=== PATIENT | male | born 1965 | race Caucasian/White ===

== ENCOUNTER 2017-01-11 18:29 | Emergency (ER) | payer BC ==
[2017-01-11] MEDS ORDERED: Albuterol/Ipratropium 3.0-0.5 MG/3 ML Neb Soln NEB ONE (18:42)
--- NOTE | 2017-01-11 18:54 | EDM.PDOC ---
ED HPI GENERAL MEDICAL PROBLEM - General Chief Complaint: Lower Extremity Injury/Pain Stated Complaint: DRAIN LT LEG/FALL Time Seen by Provider: 01/11/17 18:35 Source of Information: Reports: Patient History Limitations: Reports: No Limitations - History of Present Illness INITIAL COMMENTS - FREE TEXT/NARRATIVE: History of present illness: [51-year-old male comes in complaining of fluid on the back of his left eye. Patient indicates he was in a traumatic accident and now he feels he has some blood trapped unassigned he would like to have it drained.] Review of systems: As per history of present illness and below otherwise all systems reviewed and negative. Past medical history: As per history of present illness and as reviewed below otherwise noncontributory. Surgical history: As per history of present illness and as reviewed below otherwise noncontributory. Social history: No reported history of drug or alcohol abuse. Family history: As per history of present illness and as reviewed below otherwise noncontributory. Physical exam: HEENT: Atraumatic, normocephalic, pupils reactive, negative for conjunctival pallor or scleral icterus, mucous membranes moist, throat clear, neck supple, nontender, trachea midline. Lungs: Clear to auscultation, breath sounds equal bilaterally, chest nontender. Heart: S1S2, regular, negative for clicks, rubs, or JVD. Abdomen: Soft, nondistended, nontender. Negative for masses or hepatosplenomegaly. Negative for costovertebral tenderness. Pelvis: Stable nontender. Genitourinary: Deferred. Rectal: Deferred. Extremities: Left foot ankle swollen and ecchymotic with a fluctuant area to the back of the left thigh, negative for cords or calf pain. Neurovascular unremarkable. Neuro: Awake, alert, oriented. Cranial nerves II through XII unremarkable. Cerebellum unremarkable. Motor and sensory unremarkable throughout. Exam nonfocal. X-rays negative for fracture dialogue about risks of doing any nature of drainage of the hematoma patient verbalized understanding. Patient provided Pierre wrap and a brief prescription of meloxicam instead of ibuprofen for discomfort.. Discussed elevation icing of the calf and heating and massaging of the thigh. Diagnostics: [X-ray left leg with foot] Therapeutics: [] Impression: [Leg pain, hematoma] Plan: [Pierre wrap meloxicam] Definitive disposition and diagnosis as appropriate pending reevaluation and review of above. left post. thigh and left leg Pain Score (Numeric/FACES): 6 - Related Data Allergies Allergy/AdvReac Type Severity Reaction Status Date / Time No Known Allergies Allergy Verified 01/11/17 18:47 Home Meds: Home Meds Meloxicam 7.5 mg PO BID #30 tablet 01/11/17 [Rx] Review of Systems - Review of Systems Review Of Systems: See Below (History of present illness) ED EXAM, GENERAL - Physical Exam Exam: See Below (History of present illness) Course - Vital Signs Last Recorded V/S: Last Vital Signs Temp 36.6 C 01/11/17 18:45 Pulse 84 01/11/17 18:45 Resp 16 01/11/17 18:45 BP 132/71 01/11/17 18:45 Pulse Ox 97 01/11/17 18:45 - Orders/Labs/Meds Orders: Active Orders 24 hr Category Date Time Status RT Aerosol Therapy [RC] ASDIRECTED Care 01/11/17 18:43 Inactive Femur Min 2V Lt [CR] Stat Exams 01/11/17 18:45 Taken Foot 2V Lt [CR] Stat Exams 01/11/17 18:45 Taken Meds: Medications Discontinued Medications Generic Name Dose Route Start Last Admin Trade Name Freq PRN Reason Stop Dose Admin Albuterol/Ipratropium 3 ml 01/11/17 18:42 01/11/17 19:06 Duoneb 3.0-0.5 Mg/3 Ml NEB 01/11/17 18:43 Not Given ONETIME ONE Departure - Departure Time of Disposition: 20:03 Disposition: Home, Self-Care 01 Condition: Good Clinical Impression: Leg pain - Discharge Information Forms: ED Department Discharge Additional Instructions: The following information is given to patients seen in the emergency department who are being discharged to home. This information is to outline your options for follow-up care. We provide all patients seen in our emergency department with a follow-up referral. The need for follow-up, as well as the timing and circumstances, are variable depending upon the specifics of your emergency department visit. If you don't have a primary care physician on staff, we will provide you with a referral. We always advise you to contact your personal physician following an emergency department visit to inform them of the circumstance of the visit and for follow-up with them and/or the need for any referrals to a consulting specialist. The emergency department will also refer you to a specialist when appropriate. This referral assures that you have the opportunity for follow-up care with a specialist. All of these measure are taken in an effort to provide you with optimal care, which includes your follow-up. Under all circumstances we always encourage you to contact your private physician who remains a resource for coordinating your care. When calling for follow-up care, please make the office aware that this follow-up is from your recent emergency room visit. If for any reason you are refused follow-up, please contact the [facility] Emergency Department at and asked to speak to the emergency department charge nurse. Take medication as directed Use Pierre wrap as directed you may ice, heat, elevate as discussed Return to ER as needed as discussed - My Orders Last 24 Hours: My Active Orders 01/11/17 18:43 RT Aerosol Therapy [RC] ASDIRECTED 01/11/17 18:45 Femur Min 2V Lt [CR] Stat Foot 2V Lt [CR] Stat - Assessment/Plan Last 24 Hours: My Active Orders 01/11/17 18:43 RT Aerosol Therapy [RC] ASDIRECTED 01/11/17 18:45 Femur Min 2V Lt [CR] Stat Foot 2V Lt [CR] Stat
[2017-01-11 20:15] VITALS: BP 126/76
--- NOTE | 2017-01-14 09:52 | CR ---
EXAM DATE: 01/11/17 PATIENT'S AGE: 51 Patient: DEBBIE CAMPOS Facility: [place], [place] Site . Site : 1965 Study: XRay Extremity Left foot [id number]/14/2017 7:38:35 PM Ordering Physician: Doctor Donohue Final Report: INDICATION:Foot pain, fall 5-6 days ago from a height of 15 feet TECHNIQUE: Foot radiograph 2 views left COMPARISON: None FINDINGS: Bones: Alignment is normal. No acute fractures or aggressive bone lesions identified. Heterotopic ossification seen near the medial sesamoid bone. Joint spaces: Unremarkable. No ankle effusion is seen. Soft tissues: Unremarkable. Kager`s fat pad is normal in appearance. The visualized Achilles` tendon is unremarkable. No radiopaque foreign bodies are seen. IMPRESSION: 1. No acute osseous injuries are noted. Dictated by: Juan Jose Ayala MD @ 01/11/2017 19:50:34 (Electronic Signature) Report Signed by Proxy. BERTIN
--- NOTE | 2017-01-14 09:53 | CR ---
EXAM DATE: 01/11/17 PATIENT'S AGE: 51 Patient: DEBBIE CAMPOS Facility: [place], [place] Site . Site : 1965 Study: XRay Extremity Left FEMUR [id number]/14/2017 7:40:26 PM Ordering Physician: Doctor Donohue Final Report: Indication: Pain. Fall from height of 15 feet 5-6 days ago. Technique: Left femur four views. Comparison: None. Findings: No acute fracture or dislocation. Minimal degenerative changes of the left hip and knee. No additional osseous abnormality. Soft tissues as imaged are unremarkable. Impression: No acute osseous abnormality. Dictated by Josh Rodriguez MD @ 01/11/2017 7:53:41 PM Dictated by: Josh Rodriguez MD @ 01/11/2017 19:53:45 (Electronic Signature) Report Signed by Proxy. [facility] MEDICAL CENTERRegulo
== END 2017-01-11 20:13 | disposition home or self-care (01) ==
LOC: MW.ED 18:29
DX: S70.12XA Contusion of left thigh, initial encounter (principal); X58.XXXA Exposure to other specified factors, initial encounter
CPT/HCPCS: 73552-26-LT; 73552-LT; 73620-26-LT; 73620-LT; 99283; 99284-25

== ENCOUNTER 2017-01-22 09:52 | Emergency (ER) | payer BC ==
--- NOTE | 2017-01-22 10:27 | EDM.PDOC ---
ED HPI GENERAL MEDICAL PROBLEM - General Chief Complaint: Lower Extremity Injury/Pain Stated Complaint: PAIN/SWOLLEN LT LEG Time Seen by Provider: 01/22/17 09:53 Source of Information: Reports: Patient History Limitations: Reports: No Limitations - History of Present Illness INITIAL COMMENTS - FREE TEXT/NARRATIVE: HISTORY AND PHYSICAL: []51-year-old male who presents with edema to his left lower leg and is concerned about a blood clot History of Present Illness: []2 weeks ago patient had a traumatic injury was seen in the evaluate evaluated in emergency room no fractures were noted at that time He had a large hematoma Review of Systems: As per history of present illness and below otherwise all systems reviewed and negative. Past medical history: As per history of present illness and as reviewed below otherwise noncontributory. Surgical history: As per history of present illness and as reviewed below otherwise noncontributory. Social history: No reported history of drug or alcohol abuse. Family history: As per history of present illness and as reviewed below otherwise noncontributory. Physical exam: Alert and oriented, answering questions appropriately in full sentences, denies shortness of breath HEENT: Atraumatic, normocehpalic, pupils reactive, negative for conjunctival pallor or scleral icterus, mucous membranes moist, throat clear, neck supple, nontender, trachea midline. Lungs: Clear to auscultation, breath sounds equal bilaterally, chest non tender. Heart: S1S2, regular, negative for clicks, rubs, or JVD. Abdomen: Soft, nondistended, nontender. Negative for masses or hepatossplenmegaly. Negative for costovertebral tenderness. Pelvis: Stable nontender. Genitourinary: Deferred. Rectal: Deferred Extremities: Atraumatic, negative for cords or calf pain. Edema noted from the left leg thigh down to his foot. Faint pulses palpable pedally. Full range of motion is present. No pain to the calf with compression Neurovascular unremarkable. Neuro: Awake, alert, oriented. Cranial nerves II through XII unremarkable. Cerebellum unremarkable. Motor and sensory unremarkable throughout. Exam nonfocal. Diagnostics: [Venous Doppler is negative for any DVT] Therapeutics: [] Impression: [Edema post injury] Plan: []Home elevate left leg Ice as needed for discomfort Taken aspirin daily Follow-up with your primary care provider this week Definitive disposition and diagnosis as appropriate pending reevaluation and review of above. Left Ankle Pain Score (Numeric/FACES): 3 - Related Data Allergies Allergy/AdvReac Type Severity Reaction Status Date / Time No Known Allergies Allergy Verified 01/22/17 09:58 Home Meds: Home Meds . [No Known Home Meds] 01/22/17 [History] Past Medical History - Past Health History Medical/Surgical History: Denies Medical/Surgical History - Past Surgical History GI Surgical History: Reports: Hernia Repair/Other Social & Family History - Family History Family Medical History: Noncontributory - Tobacco Use Smoking Status *Q: Never Smoker - Caffeine Use Caffeine Use: Reports: Coffee, Soda - Recreational Drug Use Recreational Drug Use: No Review of Systems - Review of Systems Review Of Systems: ROS reveals no pertinent complaints other than HPI. ED EXAM, GENERAL - Physical Exam Exam: See Below Course - Vital Signs Last Recorded V/S: Last Vital Signs Temp 36.0 C 01/22/17 09:59 Pulse 61 01/22/17 09:59 Resp 18 01/22/17 09:59 BP 128/59 L 01/22/17 09:59 Pulse Ox 97 01/22/17 09:59 Departure - Departure Time of Disposition: 11:25 Disposition: Home, Self-Care 01 Condition: Good Clinical Impression: Leg edema, left - Discharge Information Forms: ED Department Discharge Additional Instructions: The following information is given to patients seen in the emergency department who are being discharged to home. This information is to outline your options for follow-up care. We provide all patients seen in our emergency department with a follow-up referral. The need for follow-up, as well as the timing and circumstances, are variable depending upon the specifics of your emergency department visit. If you don't have a primary care physician on staff, we will provide you with a referral. We always advise you to contact your personal physician following an emergency department visit to inform them of the circumstance of the visit and for follow-up with them and/or the need for any referrals to a consulting specialist. The emergency department will also refer you to a specialist when appropriate. This referral assures that you have the opportunity for followup care with a specialist. All of these measure are taken in an effort to provide you with optimal care, which includes your followup. Under all circumstances we always encourage you to contact your private physician who remains a resource for coordinating your care. When calling for followup care, please make the office aware that this follow-up is from your recent emergency room visit. If for any reason you are refused follow-up, please contact the [facility] emergency department at and asked to speak to the emergency department charge nurse. Elevate and ice as needed Follow-up with your primary care provider in 7 days Take one aspirin daily
--- NOTE | 2017-01-22 11:10 | US ---
ULTRASOUND EXAMINATION OF the left lower extremity WITH DOPPLER HISTORY: Edema FINDINGS: Examination of the left leg was performed from the groin to the calf region. All visualized segment s including common femoral, proximal greater saphenous, superficial femoral, popliteal and calf vein s appear patent with good compressibility and augmentation. There is no evidence of deep vein throm bosis. Subcutaneous edema is noted within the calf region. IMPRESSION: No evidence of a DVT.
[2017-01-22 11:38] VITALS: BP 123/83
== END 2017-01-22 11:36 | disposition home or self-care (01) ==
LOC: MW.ED 09:52
DX: R60.0 Localized edema (principal)
CPT/HCPCS: 93971-26-LT; 93971-LT; 99282; 99283-25

== ENCOUNTER 2019-06-15 10:44 | Day surgery (SDC) | payer BC ==
[~2019-06-15 10:44] MED LIST: Lactated Ringers 1,000 ML IV SCH; Midazolam 1 MG/ML 2 ML SDV ONE; Propofol 200 MG/20 ML SDV ONE; fentaNYL 100 MCG/2 ML SDV ONE
--- NOTE | 2019-06-15 11:06 | PCM.PREANE ---
Preanesthetic Assessment - Anesthesia/Transfusion/Family Hx Anesthesia History: Prior Anesthesia Without Reaction Family History of Anesthesia Reaction: No Transfusion History: No Prior Transfusion(s) Intubation History: Unknown - Review of Systems General: No Symptoms Pulmonary: No Symptoms Cardiovascular: No Symptoms Gastrointestinal: No Symptoms, Other (screening colonoscopy) Neurological: No Symptoms Other: Reports: None - Physical Assessment Height: 5 ft 6 in Weight: 91.626 kg ASA Class: 2 Mental Status: Alert & Oriented x3 Airway Class: Mallampati = 2 Dentition: Reports: Normal Dentition Thyro-Mental Finger Breadths: 3 Mouth Opening Finger Breadths: 3 ROM/Head Extension: Full Lungs: Clear to Auscultation, Normal Respiratory Effort Cardiovascular: Regular Rate, Regular Rhythm - Allergies Allergies/Adverse Reactions: Allergies Allergy/AdvReac Type Severity Reaction Status Date / Time No Known Allergies Allergy Verified 06/10/19 08:12 - Blood Blood Available: No - Anesthesia Plan Pre-Op Medication Ordered: None - Acknowledgements Anesthesia Type Planned: MAC Pt an Appropriate Candidate for the Planned Anesthesia: Yes Alternatives and Risks of Anesthesia Discussed w Pt/Guardian: Yes Pt/Guardian Understands and Agrees with Anesthesia Plan: Yes PreAnesthesia Questionnaire - Past Health History Medical/Surgical History: Denies Medical/Surgical History HEENT History: Reports: None Cardiovascular History: Reports: High Cholesterol Respiratory History: Reports: None Gastrointestinal History: Reports: None Genitourinary History: Reports: Renal Calculus Musculoskeletal History: Reports: Osteoarthritis Other Musculoskeletal History: left shoulder pain Neurological History: Reports: None Psychiatric History: Reports: None Endocrine/Metabolic History: Reports: Obesity/BMI 30+ Hematologic History: Reports: None Immunologic History: Reports: None Oncologic (Cancer) History: Reports: None Dermatologic History: Reports: None - Past Surgical History Head Surgeries/Procedures: Reports: None HEENT Surgical History: Reports: None Cardiovascular Surgical History: Reports: None Respiratory Surgical History: Reports: None GI Surgical History: Reports: Hernia, Inguinal Other GI Surgeries/Procedures: exploratory laparotomy -oversewing of irineo- javed tear Male Surgical History: Reports: Vasectomy Endocrine Surgical History: Reports: None Neurological Surgical History: Reports: None Musculoskeletal Surgical History: Reports: None Oncologic Surgical History: Reports: None Dermatological Surgical History: Reports: None - SUBSTANCE USE Smoking Status *Q: Former Smoker Tobacco Use Within Last Twelve Months: No - HOME MEDS Home Medications: Home Meds . [No Known Home Meds] 01/22/17 [History] - CURRENT (IN HOUSE) MEDS Current Meds: Current Medications Lactated Ringer's (Ringers, Lactated) 1,000 mls @ 125 mls/hr IV ASDIRECTED ADITI Discontinued Medications Fentanyl (Sublimaze) Confirm Administered Dose 100 mcg .ROUTE .STK-MED ONE Stop: 06/15/19 08:34 Midazolam HCl (Versed 1 Mg/Ml) Confirm Administered Dose 2 mg .ROUTE .STK-MED ONE Stop: 06/15/19 08:34 Propofol (Diprivan 20 Ml) Confirm Administered Dose 200 mg .ROUTE .STK-MED ONE Stop: 06/15/19 08:34
[2019-06-15] MEDS ORDERED: Phenylephrine/Normal Saline 100 MCG/ML 10 ML Syringe ONE (11:24)
[2019-06-15] MEDS ORDERED: Propofol 200 MG/20 ML SDV ONE (11:36)
--- NOTE | 2019-06-15 11:49 | PCM.OPNOTE ---
- General Post-Op/Procedure Note Date of Surgery/Procedure: 06/15/19 Operative Procedure(s): Colonoscopy with snare sigmoid colon polypectomy Pre Op Diagnosis: Desire for colorectal cancer screening Post-Op Diagnosis: Sigmoid polyp. Sigmoid diverticulosis. Primary Surgeon: James Berrios Condition: Good Free Text/Narrative:: DICTATION [id number] CPT CODE 16752
[2019-06-15] MEDS ORDERED: Lactated Ringers 1,000 ML IV SCH (12:00)
[2019-06-15 12:16] VITALS: BP 110/67; PULSE 73
--- NOTE | 2019-06-15 13:05 | PCM.POSTAN ---
POST ANESTHESIA ASSESSMENT - MENTAL STATUS Mental Status: Alert, Oriented - VITAL SIGNS Vital Signs: Last Vital Signs Temp 36.1 C 06/15/19 12:09 Pulse 73 06/15/19 12:09 Resp 16 06/15/19 12:09 BP 110/67 06/15/19 12:09 Pulse Ox 97 06/15/19 12:09 - RESPIRATORY Respiratory Status: Respiratory Rate WNL, Airway Patent, O2 Saturation Stable - CARDIOVASCULAR CV Status: Pulse Rate WNL, Blood Pressure Stable - GASTROINTESTINAL GI Status: No Symptoms - PAIN Pain Score: 0 - POST OP HYDRATION Hydration Status: Adequate & Stable - OBSERVATIONS Free Text/Narrative:: No anesthesia problems
--- NOTE | 2019-06-15 13:06 | PCM48HPAN ---
Post Anesthesia Note - EVALUATION WITHIN 48HRS OF ANESTHETIC Vital Signs in Normal Range: Yes Patient Participated in Evaluation: Yes Respiratory Function Stable: Yes Airway Patent: Yes Cardiovascular Function Stable: Yes Hydration Status Stable: Yes Pain Control Satisfactory: Yes Nausea and Vomiting Control Satisfactory: Yes Mental Status Recovered: Yes Vital Signs: Last Vital Signs Temp 36.1 C 06/15/19 12:09 Pulse 73 06/15/19 12:09 Resp 16 06/15/19 12:09 BP 110/67 06/15/19 12:09 Pulse Ox 97 06/15/19 12:09 - COMMENTS/OBSERVATIONS Free Text/Narrative:: No anesthesia problems
--- NOTE | 2019-06-15 13:44 | OR ---
SURGEON: James Berrios M.D. DATE OF PROCEDURE: 06/15/2019 OPERATION PERFORMED: Colonoscopy with snare, sigmoid colon polypectomy. ANESTHESIA: MAC. ASA CLASSIFICATION: 2. PREOPERATIVE DIAGNOSIS: Desire for colorectal cancer screening. POSTOPERATIVE DIAGNOSES: 1. Sigmoid polyp. 2. Sigmoid diverticulosis. DESCRIPTION OF PROCEDURE: The patient was taken to the endoscopy room and positioned on the endoscopy table in the left lateral decubitus position. Time-out was called for appropriate identification of the patient and procedure. Monitored anesthesia care was provided. The colonoscope was then inserted into the rectum and advanced with minimal difficulty to the cecum. The cecum was identified by internal landmarks and external pressure. The colonoscope was retroflexed to visualize the ascending colon from below, then straightened and slowly withdrawn. The cecum, ascending colon, hepatic flexure, transverse colon, splenic flexure, and descending colon showed no tumors, polyps, diverticula, or angiodysplastic changes. The sigmoid colon demonstrates moderate diverticular change. One polyp was encountered in the sigmoid colon and removed with the snare electrocautery and recovered. Polypectomy site was dry. There was no apparent perforation. The colonoscope was withdrawn to the distal rectum and retroflexed to visualize the anal orifice from above. Again, no tumors or polyps were seen and there were no acute hemorrhoidal changes. The colonoscope was then straightened, the rectum aspirated, and the colonoscope removed. The patient tolerated the procedure well and was taken to recovery room in stable condition. NICOLAS / KATHLEEN /[id number]
== END 2019-06-15 12:29 | disposition home or self-care (01) ==
LOC: MW.SDS 10:44
PROVIDERS: ATTEND Surgery
DX: Z12.11 Encounter for screening for malignant neoplasm of colon (principal); K57.30 Diverticulosis of large intestine without perforation or abscess without bleeding; K63.5 Polyp of colon; E78.00 Pure hypercholesterolemia, unspecified; M19.012 Primary osteoarthritis, left shoulder; M19.049 Primary osteoarthritis, unspecified hand; E66.9 Obesity, unspecified; Z87.891 Personal history of nicotine dependence; Z68.32 Body mass index [BMI] 32.0-32.9, adult
CPT/HCPCS: 45385; 88305; J2250; J2370; J2704; J3010; J7120

== ENCOUNTER 2020-04-12 16:51 | Emergency (ER) | payer BC ==
[2020-04-12 17:24] VITALS: BP 104/69; PULSE 91
--- NOTE | 2020-04-12 17:43 | EDM.PDOC ---
ED HPI GENERAL MEDICAL PROBLEM - General Chief Complaint: Genitourinary Problem Stated Complaint: CT SCAN, REFER FROM CLINIC Time Seen by Provider: 04/12/20 17:26 Source of Information: Reports: Patient History Limitations: Reports: No Limitations - History of Present Illness INITIAL COMMENTS - FREE TEXT/NARRATIVE: Presents reporting hematuria. Patient states that yesterday he fell off a roof approximately 8 to 10 feet he landed on his outstretched arms and on his left knee. He did see a provider yesterday who x-rayed his knee. He never heard back about the x-ray. Today he was working and had stopped for lunch. He urinated and there was gross blood in the urine. He saw a provider again today who ordered a CT scan without contrast. That scan indicated a nonobstructing 6 x 6 x 5 mm right ureteropelvic junction stone but the kidneys were normal in size shape and attenuation. The bladder was grossly normal. No traumatic abnormality was demonstrated on the noncontrast CT scan. Patient denies dysuria, back pain, nausea, vomiting, abdominal pain. CBC and chemistries were unremarkable. Urinalysis positive for blood and RBCs otherwise within normal limits. left knee Pain Score (Numeric/FACES): 3 - Related Data Allergies Allergy/AdvReac Type Severity Reaction Status Date / Time No Known Allergies Allergy Verified 04/12/20 17:24 Home Meds: Home Meds . [No Known Home Meds] 01/22/17 [History] Past Medical History - Past Health History Medical/Surgical History: Denies Medical/Surgical History HEENT History: Reports: None Cardiovascular History: Reports: High Cholesterol Respiratory History: Reports: None Gastrointestinal History: Reports: None Genitourinary History: Reports: Renal Calculus Musculoskeletal History: Reports: Osteoarthritis Other Musculoskeletal History: left shoulder pain Neurological History: Reports: None Psychiatric History: Reports: None Endocrine/Metabolic History: Reports: Obesity/BMI 30+ Hematologic History: Reports: None Immunologic History: Reports: None Oncologic (Cancer) History: Reports: None Dermatologic History: Reports: None - Past Surgical History Head Surgeries/Procedures: Reports: None HEENT Surgical History: Reports: None Cardiovascular Surgical History: Reports: None Respiratory Surgical History: Reports: None GI Surgical History: Reports: Hernia, Inguinal Other GI Surgeries/Procedures: exploratory laparotomy -oversewing of irineo- javed tear Male Surgical History: Reports: Vasectomy Endocrine Surgical History: Reports: None Neurological Surgical History: Reports: None Musculoskeletal Surgical History: Reports: None, Shoulder Surgery Oncologic Surgical History: Reports: None Dermatological Surgical History: Reports: None Social & Family History - Family History Family Medical History: Noncontributory - Tobacco Use Tobacco Use Status *Q: Never Tobacco User - Caffeine Use Caffeine Use: Reports: Coffee, Soda - Recreational Drug Use Recreational Drug Use: No ED ROS GENERAL - Review of Systems Review Of Systems: Comprehensive ROS is negative, except as noted in HPI. ED EXAM, RENAL/ - Physical Exam Exam: See Below Exam Limited By: No Limitations General Appearance: Alert, No Apparent Distress Ears: Normal External Exam Nose: Normal Inspection Throat/Mouth: Normal Inspection Head: Atraumatic, Normocephalic Neck: Normal Inspection Respiratory/Chest: No Respiratory Distress, Lungs Clear, Normal Breath Sounds Cardiovascular: Normal Peripheral Pulses, Regular Rate, Rhythm, No Edema GI/Abdominal: Soft, Non-Tender, No Distention Back Exam: Normal Inspection, Full Range of Motion. No: CVA Tenderness (L), CVA Tenderness (R), Paraspinal Tenderness, Vertebral Tenderness Extremities: Normal Inspection, Normal Range of Motion, Other (Left knee without swelling, ecchymosis, erythema, deformity or crepitus. Mild tenderness over the tibial plateau anteriorly) Neurological: Alert, Oriented Psychiatric: Normal Affect, Normal Mood Skin Exam: Warm, Dry, Intact, Normal Color, No Rash Lymphatic: No Adenopathy Course - Vital Signs Last Recorded V/S: Last Vital Signs Temp 36.2 C 04/12/20 17:21 Pulse 91 04/12/20 17:21 Resp 16 04/12/20 17:21 BP 104/69 04/12/20 17:21 Pulse Ox 97 04/12/20 17:21 - Orders/Labs/Meds Meds: Medications Discontinued Medications Generic Name Dose Route Start Last Admin Trade Name Freq PRN Reason Stop Dose Admin Iopamidol 100 ml 04/12/20 18:20 04/12/20 18:21 Isovue Multipack-370 (76%) IVPUSH 04/12/20 18:21 100 ml ONETIME STA Administration - Re-Assessments/Exams Free Text/Narrative Re-Assessment/Exam: 04/12/20 19:51 Dr. Ryan, Urology here and reviewed the KUB and CT with contrast. Patient may follow up with him in the clinic in 2-3 days if hematuria does not subside. Departure - Departure Time of Disposition: 19:52 Disposition: Home, Self-Care 01 Condition: Good Clinical Impression: Hematuria Qualifiers: Hematuria type: gross Qualified Code(s): R31.0 - Gross hematuria - Discharge Information *PRESCRIPTION DRUG MONITORING PROGRAM REVIEWED*: Not Applicable *COPY OF PRESCRIPTION DRUG MONITORING REPORT IN PATIENT SUKHJINDER: Not Applicable Referrals: PCP,None [Primary Care Provider] - Peter Ryan MD [Physician] - Forms: ED Department Discharge Additional Instructions: The following information is given to patients seen in the emergency department who are being discharged to home. This information is to outline your options for follow-up care. We provide all patients seen in our emergency department with a follow-up referral. The need for follow-up, as well as the timing and circumstances, are variable depending upon the specifics of your emergency department visit. If you don't have a primary care physician on staff, we will provide you with a referral. We always advise you to contact your personal physician following an emergency department visit to inform them of the circumstance of the visit and for follow-up with them and/or the need for any referrals to a consulting specialist. The emergency department will also refer you to a specialist when appropriate. This referral assures that you have the opportunity for follow-up care with a specialist. All of these measure are taken in an effort to provide you with optimal care, which includes your follow-up. Under all circumstances we always encourage you to contact your private physician who remains a resource for coordinating your care. When calling for follow-up care, please make the office aware that this follow-up is from your recent emergency room visit. If for any reason you are refused follow-up, please contact the [facility] Emergency Department at and asked to speak to the emergency department charge nurse. 1. Follow-up with Dr. Ryan 2 to 3 days if not in your urine does not resolve. 2. Follow up in primary care for left knee pain if it continues Sepsis Event Note (ED) - Evaluation Sepsis Screening Result: No Definite Risk - Focused Exam Vital Signs: Vital Signs Temp Pulse Resp BP Pulse Ox 04/12/20 17:21 36.2 C 91 16 104/69 97
[2020-04-12] MEDS ORDERED: Iopamidol 755 MG/ML 500 ML Multipack Bottle IVPUSH STA (18:20)
--- NOTE | 2020-04-12 19:13 | CT ---
Indication: Hematuria after falling from a roof yesterday. Technique: Multiple contiguous axial images were obtained from the lung bases through the symphysis pubis after the intravenous administration of 100 milliliters Isovue-300. Please note that all CT scans at this facility use dose modulation, iterative reconstruction, and/or weight-based dosing when appropriate to reduce radiation dose to as low as reasonably achievable. Comparison: Study from earlier today. Findings: The lung bases are clear. The heart is normal in size. No pericardial effusion is identified. The liver is at the upper limits of size measuring 19.4 centimeters in craniocaudal dimension. No intrahepatic biliary ductal dilatation is identified. No intrahepatic masses are identified. The spleen, pancreas, gallbladder, adrenals, and kidneys are normal. No intrahepatic biliary ductal dilatation is identified. A nonobstructing right renal calculus is identified at the right ureteropelvic junction. This measures again 6 x 6 mm in size. This is best seen on image number 49, series 201. No hydroureter is identified. There is no evidence of renal injury. No perinephric fat stranding is identified. No extravasation of contrast is identified. In the pelvis, the urinary bladder is normal. Prostatic calcifications are identified. The small and large bowel are normal in caliber. Sigmoid diverticulosis is identified. There is no evidence of diverticulitis. The appendix is normal in caliber. No free air or free fluid is identified within the abdomen or pelvis. Six and 8 minutes delayed images were obtained and demonstrate filling of the renal collecting systems bilaterally. Neither ureter is well opacified. Impression: Nonobstructing right renal calculus at the level of the UPJ. No evidence of trauma to the kidneys. Please note that all CT scans at this facility use dose modulation, iterative reconstruction, and/or weight-based dosing when appropriate to reduce radiation dose to as low as reasonably achievable. Dictated by Dipti Nguyen MD @ Apr 12 2020 7:06PM Signed by Dr. Dipti Nguyen @ Apr 12 2020 7:11PM
--- NOTE | 2020-04-12 19:49 | CR ---
Indication: Hematuria. Technique: AP views of the abdomen and pelvis. Comparison: None Findings: Contrast is identified within the bilateral renal collecting systems and the urinary bladder. The mid and distal ureters are not identified bilaterally. This is symmetric. A questionable filling defect is identified within the proximal right ureter, consistent with the patient`s known calculus. Impression: Probable filling defect identified within the proximal right ureter noted, consistent with the patient`s known right ureteral calculus Dictated by Dipti Nguyen MD @ Apr 12 2020 7:46PM Signed by Dr. Dipti Nguyen @ Apr 12 2020 7:47PM
== END 2020-04-12 20:03 | disposition home or self-care (01) ==
LOC: MW.ED 16:51
DX: R31.0 Gross hematuria (principal); E66.9 Obesity, unspecified; Z68.30 Body mass index [BMI] 30.0-30.9, adult
CPT/HCPCS: 74018; 74177; 99284; Q9967

== ENCOUNTER 2020-06-23 07:28 | Day surgery (SDC) | payer BC ==
[~2020-06-23 07:28] MED LIST changes: +50% Dextrose in Water 50 ML Syringe IVPUSH PRN; +Albuterol 0.083% 2.5 MG/3 ML Neb Soln NEB PRN; +Atropine 0.1 MG/ML 10 ML Syringe IVPUSH PRN; +EPINEPHrine 1:10,000 1 MG/10 ML Syringe IVPUSH PRN; +Glycopyrrolate 0.2 MG/ML SDV ONE; +Lidocaine 2% 5 ML SDV ONE; +Naloxone 0.4 MG/ML Syringe IVPUSH PRN; +Ondansetron 4 MG/2 ML SDV ONE; +Rocuronium Bromide 50 MG/5 ML Syringe ONE; +Sodium Chloride 0.9% 10 ML SDV IV PRN; +Sodium Chloride 0.9% 10 ML Syringe FLUSH PRN; +Sodium Chloride 0.9% 2.5 ML Syringe FLUSH PRN; +ceFAZolin 2 GM in Premix Bag 1 BAG IV ONE; +fentaNYL 100 MCG/2 ML SDV IVPUSH PRN; -fentaNYL 100 MCG/2 ML SDV ONE; +fentaNYL 250 MCG/5 ML SDV ONE
--- NOTE | 2020-06-23 07:47 | PCM.PREANE ---
Preanesthetic Assessment - Anesthesia/Transfusion/Family Hx Anesthesia History: Prior Anesthesia Without Reaction Family History of Anesthesia Reaction: No Transfusion History: No Prior Transfusion(s) Intubation History: Unknown - Review of Systems General: No Symptoms Pulmonary: No Symptoms Cardiovascular: No Symptoms Gastrointestinal: No Symptoms Neurological: No Symptoms Other: Reports: None - Physical Assessment Vital Signs: Last Vital Signs Temp 35.8 C L 06/23/20 07:33 Pulse 76 06/23/20 07:33 Resp 15 06/23/20 07:33 BP 102/59 L 06/23/20 07:33 Pulse Ox 98 06/23/20 07:33 Height: 5 ft 6 in Weight: 87.997 kg ASA Class: 2 Mental Status: Alert & Oriented x3 Airway Class: Mallampati = 2 Dentition: Reports: Normal Dentition Thyro-Mental Finger Breadths: 3 Mouth Opening Finger Breadths: 3 ROM/Head Extension: Full Lungs: Clear to Auscultation, Normal Respiratory Effort Cardiovascular: Regular Rate, Regular Rhythm - Lab Values: Laboratory Last Values SARS-CoV-2 RNA (AKUA) NEGATIVE (NEGATIVE) 06/23/20 06:25 - Allergies Allergies/Adverse Reactions: Allergies Allergy/AdvReac Type Severity Reaction Status Date / Time No Known Allergies Allergy Verified 06/22/20 10:00 - Blood Blood Available: No - Anesthesia Plan Pre-Op Medication Ordered: None - Acknowledgements Anesthesia Type Planned: General Anesthesia Pt an Appropriate Candidate for the Planned Anesthesia: Yes Alternatives and Risks of Anesthesia Discussed w Pt/Guardian: Yes Pt/Guardian Understands and Agrees with Anesthesia Plan: Yes PreAnesthesia Questionnaire - Past Health History Medical/Surgical History: Denies Medical/Surgical History HEENT History: Reports: None Cardiovascular History: Reports: High Cholesterol Respiratory History: Reports: Other (See Below) Other Respiratory History: states possible has sleep apnea; has not had sleep study done Gastrointestinal History: Reports: Colon Polyp, Diverticulosis Genitourinary History: Reports: Renal Calculus Other Genitourinary History: states has a right kidney stone Musculoskeletal History: Reports: Arthritis, Fracture Other Musculoskeletal History: states in the past fractured wrist, knee, ribs and some toes Neurological History: Reports: Concussion Psychiatric History: Reports: None Endocrine/Metabolic History: Reports: Obesity/BMI 30+ (BMI 31.3) Hematologic History: Reports: None Immunologic History: Reports: None Oncologic (Cancer) History: Reports: None Dermatologic History: Reports: None - Infectious Disease History Infectious Disease History: Reports: Chicken Pox Other Infectious Disease History: when a child - Past Surgical History Head Surgeries/Procedures: Reports: None HEENT Surgical History: Reports: Oral Surgery Other HEENT Surgeries/Procedures: has 3 dental implants lower right Cardiovascular Surgical History: Reports: None Respiratory Surgical History: Reports: None GI Surgical History: Reports: Colonoscopy, Hernia, Inguinal Other GI Surgeries/Procedures: exploratory laparotomy -oversewing of irineo- javed tear Female Surgical History: Male Surgical History: Reports: Vasectomy Endocrine Surgical History: Reports: None Neurological Surgical History: Reports: None Musculoskeletal Surgical History: Reports: Arthroscopic Knee, Shoulder Surgery Oncologic Surgical History: Reports: None Dermatological Surgical History: Reports: None - SUBSTANCE USE Tobacco Use Status *Q: Former Tobacco User - HOME MEDS Home Medications: Home Meds . [No Known Home Meds] 01/22/17 [History] - CURRENT (IN HOUSE) MEDS Current Meds: Current Medications Albuterol (Proventil Neb Soln) 2.5 mg NEB ONETIME PRN PRN Reason: Wheezing Atropine Sulfate (Atropine 0.1 Mg/Ml) 0.5 mg IVPUSH ASDIRECTED PRN PRN Reason: Hypo-perfusion Atropine Sulfate (Atropine 0.1 Mg/Ml) 1 mg IVPUSH ASDIRECTED PRN PRN Reason: Hypo-Perfusion Dextrose/Water (Dextrose 50% In Water) 50 ml IVPUSH ASDIRECTED PRN PRN Reason: Hypoglycemia Epinephrine HCl (Epinephrine 1:10,000) 1 mg IVPUSH ASDIRECTED PRN PRN Reason: ACLS Guidelines Fentanyl (Sublimaze) 50 - 100 mcg IVPUSH Q5M PRN PRN Reason: Pain Lactated Ringer's (Ringers, Lactated) 1,000 mls @ 100 mls/hr IV ASDIRECTED ADITI Naloxone HCl (Narcan) 0.1 mg IVPUSH ASDIRECTED PRN PRN Reason: Respiratory Depression Sodium Chloride (Saline Flush) 10 ml FLUSH ASDIRECTED PRN PRN Reason: Keep Vein Open Sodium Chloride (Saline Flush) 2.5 ml FLUSH ASDIRECTED PRN PRN Reason: Keep Vein Open Sodium Chloride (Normal Saline) 10 ml IV ASDIRECTED PRN PRN Reason: IV Use Discontinued Medications Fentanyl (Sublimaze) Confirm Administered Dose 250 mcg .ROUTE .STK-MED ONE Stop: 06/23/20 07:14 Glycopyrrolate (Robinul) Confirm Administered Dose 0.4 mg .ROUTE .STK-MED ONE Stop: 06/23/20 07:13 Cefazolin Sodium/Dextrose 2 gm (/ Premix) 50 mls @ 100 mls/hr IV ONCALL ONE Stop: 06/23/20 00:30 Lidocaine (Xylocaine-Mpf 2%) Confirm Administered Dose 5 ml .ROUTE .STK-MED ONE Stop: 06/23/20 07:13 Midazolam HCl (Versed 1 Mg/Ml) Confirm Administered Dose 2 mg .ROUTE .STK-MED ONE Stop: 06/23/20 07:14 Ondansetron HCl (Zofran) Confirm Administered Dose 4 mg .ROUTE .STK-MED ONE Stop: 06/23/20 07:13 Propofol (Diprivan 20 Ml) Confirm Administered Dose 200 mg .ROUTE .STK-MED ONE Stop: 06/23/20 07:13 Rocuronium Avery (Rocuronium Avery) Confirm Administered Dose 50 mg .ROUTE .STK-MED ONE Stop: 06/23/20 07:13
[2020-06-23] MEDS ORDERED: ePHEDrine 50 MG/ML SDV ONE (08:07)
[2020-06-23] MEDS ORDERED: Glycopyrrolate 0.2 MG/ML SDV ONE (08:21)
--- NOTE | 2020-06-23 09:28 | PCM.POSTAN ---
POST ANESTHESIA ASSESSMENT - MENTAL STATUS Mental Status: Alert, Oriented - VITAL SIGNS Vital Signs: Last Vital Signs Temp 36.4 C 06/23/20 08:55 Pulse 65 06/23/20 09:21 Resp 9 L 06/23/20 09:21 BP 108/65 06/23/20 09:21 Pulse Ox 97 06/23/20 09:21 - RESPIRATORY Respiratory Status: Respiratory Rate WNL, Airway Patent, O2 Saturation Stable - CARDIOVASCULAR CV Status: Pulse Rate WNL, Blood Pressure Stable - GASTROINTESTINAL GI Status: No Symptoms - PAIN Pain Score: 2 - POST OP HYDRATION Hydration Status: Adequate & Stable - OBSERVATIONS Free Text/Narrative:: No anesthesia problems
--- NOTE | 2020-06-23 10:01 | PCM48HPAN ---
Post Anesthesia Note - EVALUATION WITHIN 48HRS OF ANESTHETIC Vital Signs in Normal Range: Yes Patient Participated in Evaluation: Yes Respiratory Function Stable: Yes Airway Patent: Yes Cardiovascular Function Stable: Yes (EKG RBBB (new?) no symptoms, cardiology rios. made) Hydration Status Stable: Yes Pain Control Satisfactory: Yes Nausea and Vomiting Control Satisfactory: Yes Mental Status Recovered: Yes Vital Signs: Last Vital Signs Temp 35.7 C L 06/23/20 09:26 Pulse 65 06/23/20 09:26 Resp 12 06/23/20 09:26 BP 99/59 L 06/23/20 09:26 Pulse Ox 96 06/23/20 09:26 - COMMENTS/OBSERVATIONS Free Text/Narrative:: No anesthesia complications.
[2020-06-23 10:22] VITALS: BP 102/68; PULSE 66
--- NOTE | 2020-06-23 12:19 | OR ---
SURGEON: Peter Ryan M.D. DATE OF PROCEDURE: 06/23/2020 PREOPERATIVE DIAGNOSIS: An 8 mm right upper ureteral stone. POSTOPERATIVE DIAGNOSIS: An 8 mm right upper ureteral stone. OPERATION PERFORMED: Extracorporeal shockwave lithotripsy. DESCRIPTION OF PROCEDURE: The patient was placed on the lithotripsy table. He was under general anesthesia. The position of the patient was adjusted so the stone could be treated, and eventually, he received a total of 2600 shocks. At the end of the treatment, the shadow of the stone completely disappeared. With that done, the procedure was terminated. The patient was sent to the recovery room in good condition. DI / KATHLEEN /[id number]
== END 2020-06-23 10:37 | disposition home or self-care (01) ==
LOC: MW.SDS 07:28
PROVIDERS: ATTEND Urology
DX: N20.1 Calculus of ureter (principal); M19.012 Primary osteoarthritis, left shoulder; E78.00 Pure hypercholesterolemia, unspecified; E66.9 Obesity, unspecified; Z01.812 Encounter for preprocedural laboratory examination; Z20.828 Contact with and (suspected) exposure to other viral communicable diseases; Z79.899 Other long term (current) drug therapy; Z68.31 Body mass index [BMI] 31.0-31.9, adult; Z98.890 Other specified postprocedural states
CPT/HCPCS: 50590; 87635; 93005; J2001; J2250; J2405; J2704; J3010; J3490; J7120; U0002